=== PATIENT | male | born 1965 | race Caucasian/White ===

== ENCOUNTER 2023-02-01 21:39 | Emergency (ER) | payer OTHER, SELFPAY ==
[2023-02-01 21:48] VITALS: BP 175/88; PULSE 80; RESP 18; TEMP 36; O2SAT 98
--- NOTE | 2023-02-01 22:30 | ED.ALLEREA ---
HPI - Allergic Reaction General Chief complaint: Allergic Reaction Stated complaint: allergic reaction Time Seen by Provider: 02/01/23 22:12 History of Present Illness HPI narrative: This is a 57-year-old male who presents the emergency department 30 minutes after noticing a rash on the abdomen and arms and lower lip swelling. He states approximately 2 hours ago, he ate a new brand of fried shrimp. This morning he took his valsartan/hydrochlorothiazide. He denies any other new foods or medications. He states after taking 50 mg of Benadryl, the rash and lip swelling has improved. He had 1 episode of vomiting but no longer feels nauseous. Related Data Allergies Allergy/AdvReac Type Severity Reaction Status Date / Time codeine Allergy Anxiety Verified 02/01/23 21:48 Review of Systems Review of Systems: CONSTITUTIONAL: Denies fever, chills, or sweats. EYES: Denies visual changes, redness, or discharge. ENT: Swelling of the bottom lip and tongue, now improved denies rhinorrhea, congestion, sore throat, or otalgia. CARDIOVASCULAR: Denies chest pain, palpitations, or edema. RESPIRATORY: Denies cough or dyspnea. GASTROINTESTINAL: Denies abdominal pain, nausea, vomiting, or diarrhea. GENITOURINARY: Denies dysuria or hematuria. SKIN: Hives of the abdomen and arms denies itching. MUSCULOSKELETAL: Denies back pain, joint pain, or myalgia. NEUROLOGIC: Denies headache, numbness, dizziness, or weakness. PSYCHIATRIC: Denies anxiety or depression. PMFSH Past Medical History Medical History Hypertension Social History Social History (Updated 02/03/23 @ 03:41 by Raffi Phipps MD) Smoking status: Never smoker Alcohol intake: current Drinks per week: 1 Substance use: never Exam Narrative: GENERAL: Well-developed, well-nourished, and in no acute distress. HEAD: Normocephalic, atraumatic. EYES: PERRLA and EOMI. ENT: Mild swelling of the lower lip, no noted swelling of the tongue or posterior pharynx. The voice sounds normal. Nares clear, no rhinorrhea or epistaxis. Mucous membranes moist. Oropharynx without tonsillar hypertrophy exudate or other lesions. NECK: Supple. No adenopathy or masses. No carotid bruits or JVD CHEST: Clear to auscultation. No respiratory distress. No wheezes rales or rhonchi HEART: Regular rate and rhythm. No murmur heard. Normal peripheral pulses. ABDOMEN: Soft, nontender, nondistended, normal active bowel sounds. EXTREMITIES: Normal range of motion. No edema. SKIN: Erythema of the skin over the left lower abdominal quadrant consistent with resolving hives. Skin otherwise warm, dry. NEURO: No focal deficits. Alert and oriented x3. PSYCH: Normal mood and affect. Course Course Emergency Course: :26 - On reevaluation, the patient states he feels much better. The swelling appears to have resolved. He has been under observation for approximately 4 hours. Will discharge with prednisone, Benadryl and epinephrine autoinjector. I advised patient to hold his valsartan/hydrochlorothiazide as well as treatment. Discussed return and emergent precautions including signs/symptoms of anaphylaxis. The patient and his voiced understanding and are comfortable with the plan. All questions answered to their satisfaction. Vital Signs Vital signs: Vital Signs Temperature 96.8 F L 02/01/23 21:48 Pulse Rate 80 02/01/23 21:48 Respiratory Rate 18 02/01/23 21:48 Blood Pressure 175/88 H 02/01/23 21:48 Pulse Oximetry 98 02/01/23 21:48 Oxygen Delivery Room Air 02/01/23 21:48 Temperature 96.8 F L 02/01/23 21:48 Pulse Rate 80 02/01/23 21:48 Respiratory Rate 16 02/02/23 02:32 Blood Pressure 141/91 H 02/02/23 02:01 Pulse Oximetry 98 02/02/23 02:01 Oxygen Delivery Room Air 02/01/23 21:48 MDM - Allergic Reaction MDM Narrative Medical decision making narrative: Plan: Steroids, antihistamines, reassess Different
[2023-02-01 22:38] VITALS: O2SAT 97
[2023-02-01 23:17] VITALS: O2SAT 96
[2023-02-01 23:33] VITALS: O2SAT 98
[2023-02-01 23:45] VITALS: O2SAT 96
[2023-02-01] MEDS: methylPREDNISolone SOD SUCC 125 MG VIAL IV PUSH (23:59)
[2023-02-02] VITALS (11 sets, daily range): BP systolic 125–147; BP diastolic 89–91; RESP 16; O2SAT 97–100
[2023-02-02] MEDS: FAMOTIDINE 20 MG/2 ML VIAL 40 MG IV PUSH (00:01)
[2023-02-02] MEDS: methylPREDNISolone SOD SUCC 125 MG VIAL IV PUSH (00:07)
== END 2023-02-02 02:35 | disposition home or self-care (01) ==
PROVIDERS: Emergency Provider Preventive Medicine Aerospace Medicine
DX: T78.40XA Allergy, unspecified, initial encounter (principal); I10 Essential (primary) hypertension
CPT/HCPCS: 96374; 99284; J2930